=== PATIENT | male | born 1955 | race Caucasian/White ===

== ENCOUNTER → 2019-11-24 08:48 | Outpatient (BNVA) | payer BC, SELFPAY | PROVIDERS: Family Provider Family Medicine; PCP Family Medicine; Visit Provider Urology | DX: R97.20 Elevated prostate specific antigen [PSA] (principal) | CPT/HCPCS: 81001 ==

== ENCOUNTER → 2020-05-24 08:08 | Outpatient (BNVA) | payer BC, SELFPAY | PROVIDERS: Family Provider Family Medicine; PCP Family Medicine; Visit Provider Urology | DX: R97.20 Elevated prostate specific antigen [PSA] (principal) | CPT/HCPCS: 81001; 84153 ==

== ENCOUNTER → 2020-09-25 15:30 | Outpatient (BNVA) | payer BC, SELFPAY | PROVIDERS: Family Provider Family Medicine; PCP Family Medicine; Visit Provider Urology | DX: R97.20 Elevated prostate specific antigen [PSA] (principal); N39.9 Disorder of urinary system, unspecified | CPT/HCPCS: 81003; 84153 ==

== ENCOUNTER → 2021-02-12 15:37 | Outpatient (BNVA) | payer OTHER, SELFPAY | PROVIDERS: Family Provider Family Medicine; PCP Family Medicine; Referring Provider Family Medicine; Visit Provider Orthopaedic Surgery | DX: M75.101 Unspecified rotator cuff tear or rupture of right shoulder, not specified as traumatic (principal); M25.511 Pain in right shoulder; M67.40 Ganglion, unspecified site; M79.89 Other specified soft tissue disorders | CPT/HCPCS: 73030 ==

== ENCOUNTER → 2021-03-26 16:18 | Outpatient (BNVA) | payer MEDICARE, SELFPAY | PROVIDERS: Family Provider Family Medicine; PCP Family Medicine; Visit Provider Urology | DX: R97.20 Elevated prostate specific antigen [PSA] (principal) | CPT/HCPCS: 81003 ==

== ENCOUNTER → 2021-09-24 15:28 | Outpatient (BNVA) | payer MEDICARE, SELFPAY | PROVIDERS: Family Provider Family Medicine; PCP Family Medicine; Visit Provider Urology | DX: R97.20 Elevated prostate specific antigen [PSA] (principal) | CPT/HCPCS: 81003; 84153 ==

== ENCOUNTER → 2021-10-18 13:15 | Outpatient (BNVA) | payer MEDICARE, SELFPAY | PROVIDERS: Family Provider Family Medicine; PCP Family Medicine; Visit Provider Urology | DX: R97.20 Elevated prostate specific antigen [PSA] (principal) | CPT/HCPCS: 88305 ==

== ENCOUNTER → 2021-10-18 13:15 | Outpatient (BNVA) | payer MEDICARE, SELFPAY | PROVIDERS: Family Provider Family Medicine; PCP Family Medicine; Visit Provider Urology | DX: R97.20 Elevated prostate specific antigen [PSA] (principal) | CPT/HCPCS: 88342 ==

== ENCOUNTER 2021-12-24 08:32 | Outpatient (CLI) | payer MEDICARE, SELFPAY ==
--- NOTE | 2021-12-24 10:50 | N.ONRAD NP_ITS ---
Radiation Oncology New Patient Visit Patient: Beni Peguero MR#: [id number] : 1955> Age: 66> Sex: Male> Dictated by: Dr. Jose M George Date of Service: 12/24/2021 Referring Physician(s) : Dr. Yuniel Bay Diagnosis: Prostate, adenocarcinoma, Cochran score 3+3=6, Grade group 1, PSA 9.4, Stage [id number] Radiotherapy to date: Summary > No prior radiation therapy. Chief Complaint / History of Present Illness: Mr. Peguero is a 66-year-old gentleman who was had a fluctuating PSA over the past 5 or 6 years. He has had no significant urinary tract symptoms. Between September 25, 2020 and September 24, 2021, his PSA kailyn from 4.8-9.4. His digital rectal examination revealed no abnormality of the prostate. It was decided to to proceed with transrectal ultrasound guided biopsies. That procedure was performed 10/18/2021. The volume of the prostate was 41 cc. There were hypoechoic areas in both bases. 13 cores were obtained. 3 cores showed Cochran score 3+3 cancer. The positive cores were localized to the left mid gland and left base. No perineural invasion was identified. The involvement of the cores varied from 30% to 70%. Other than slight urgency, Mr. Peguero continues to be free of urinary tract symptoms. He is considering his treatment options and is referred to discuss radiation therapy. He has already seen Dr. Renan Bishop in [place] to review surgery as an option. Current Medications: Acetaminophen, amitriptyline HCl, amLODIPine Besylate, escitalopram Oxalate, gabapentin, hydroCHLOROthiazide, levoFLOXacin, lisinopril, metoprolol Tartrate, naproxen Sodium, omeprazole, oxyCODONE-Acetaminophen. Allergies: No Known Allergies Medical History: Hypertension. No history of collagen vascular disease. No previous radiation therapy. Surgical History: TRUSP/bx. Family History: Father is at age 70 having experienced coronary artery disease. Mother is at age 70 having experienced bone cancer. Social History: Last screened on 11/06/2021 - Unknown if ever smoked. Last screened on 11/06/2021 - Never drank. Current Complaints / Review of Systems: . Vital Signs: Performed on 12/24/2021 9:18 AM BMI - 32.386 kg/m2 (high), Height - 71 in, Weight - 232.2 lbs, Temperature - 96.9 f, Pulse - 57 /min (low), Respiration - 18 /min, O2 Sat - 93 % (low), Pain - 0, Fatigue - 0 and BP - 128/ 79 mm(hg). Physical Exam: Alert, oriented, no acute distress. No cervical or supraclavicular lymphadenopathy. Lungs clear to percussion. On auscultation no rales rhonchi or wheezes. Heart rhythm regular. No murmur gallop or rub. Abdomen no distention. No organomegaly or mass or tenderness. Musculoskeletal normal gait. No bone tenderness. Rectal exam not performed. The prostate was described as benign without any nodularity by Dr. Bay. Performance Status: Karnofsky 100% Pathology: Prostate, adenocarcinoma, Lindsay 3+3, grade group 1, 3 of 13 cores positive, no perineural invasion. Positive cores came from the left mid gland and left base. Lab: PSA 9.4 Imaging: None indicated because of low risk disease Impression: Mr. Peguero has a low risk carcinoma of the prostate. According to NCCN guidelines he is a candidate for active surveillance, radical prostatectomy, external beam radiation alone, or brachytherapy alone. I told him I do not recommend active surveillance because of the unreliability of PSA as a marker to follow the cancer as well as the number of cores involved and their extent of involvement. He is not interested in active surveillance. I also discussed brachytherapy, which would be performed in [place] by Dr. Bishop and Dr. Ramirez. He is not interested in brachytherapy at all. He seemed to have a thorough understanding of the surgical option, so I proceeded on to discuss external beam radiation. I told him if he selects external beam radiation that Dr. Renan Jessica will be in charge of the treatment. I told him based on having low risk disease, that I think Dr. Jessica would recommend a 4-week course of radiation to the prostate and proximal seminal vesicles only. I discussed the treatment planning process, the delivery of treatment, the acute side effects, and potential long-term complications. I discussed that there is a high risk of impotence from radiation. We discussed that long-term injury to the bowel and bladder is possible but a very low risk. I discussed that it would be rare to require a permanent ostomy for bowel or bladder. Plan: Mr. Peguero seems inclined toward surgery. However, he is going to consider our discussion further before making a final decision. Signed by: 12/24/2021 10:50:27 AM <<Signature on File>> Time spent with patient: CPT Code: CPT Code:
== END 2021-12-24 08:33 | disposition home or self-care (01) ==
LOC: ONCMED 08:40
PROVIDERS: PCP Family Medicine; Visit Provider Specialist
DX: C61 Malignant neoplasm of prostate (principal); I10 Essential (primary) hypertension; Z79.899 Other long term (current) drug therapy
CPT/HCPCS: 99205

== ENCOUNTER 2023-08-19 08:31 | Outpatient (CLI) | payer MEDICARE, SELFPAY ==
--- NOTE | 2023-08-19 | ECG_ITS ---
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 Interpretive Statements NAME OF STUDY: EXERCISE SESTAMIBI STRESS TEST INDICATION: Chest Pain, PROCEDURE: The baseline electrocardiogram showed [sinus bradycardia with poor R wave progression. Possible old septal [place]. Nonspecific T wave changes. At the baseline, the patient's blood pressure was 125/81 mm Hg with a heart rate of 55. The patient exercised for 11 minutes and 1 seconds on a standard Lance protocol. Patient attained a maximum heart rate of 136 beats per minute(88% of the maximum predicted heart rate) with a blood pressure at the peak exercise of 177/109 mm Hg. The EKG at the peak exercise revealed no significant changes. Patient did not have any chest pain or any significant arrhythmis with the exercise Sestamibi was injected 1 minute prior to the peak exercise During the recovery phase, there were no new changes. Occasional PVCs were noted Blood pressure at the end of the recovery phase was 158/95 mm Hg with a heart rate of 71 per minute. CONCLUSION: 1. No significant EKG changes with the [treadmill exercise 2. No exercise-induced chest pain. Occasional ventricular arrhythmias(isolated PVCs) during the recovery phase 3. Good exercise tolerance, attained a maximum of 13.5 METs. Maximum VO2 47.3 4. Hypertensive response to exercise 5. Sestamibi/Sestamibi perfusion results pending; see separate report. Electronically Signed On 08-22-2023 13:46:48 NETWORK SECURITY OFFICER by Antonio Dunn M.D. [id number]
[2023-08-19 08:46] VITALS: BMI 32.3
--- NOTE | 2023-08-19 08:54 | NMCV_ITS ---
NM valeria perf SPECT r/s* [id number] Beni Peguero Age: 68 Gender: M : 1955 Exam Date: 08/19/2023 09:48 Ordering Phys: Madhuri Collier MD Technologist: AGNIESZKA Locke Exam Location: [facility] Indications: SHORTNESS OF BREATH, ATHEROSCLEROTIC HEART DISEASE STRESS TEST [facility] IMAGE PROTOCOL Rest/Stress 1 Exercise Day Radiopharmaceutical Dose (mCi) Administration Site Administered by Rest: Tc-99m 10.8 IV AGNIESZKA Bone Sestamibi Stress:Tc-99m 32.6 IV AGNIESZKA Bone Sestamibi Rest: 19-Aug-2023 60 Discovery 630 Stress: 19-Aug-2023 30 Discovery 630 Radiopharmaceutical was injected at 85 % maximum heart rate. Images obtained in supine and prone position. SPECT RESULTS Technical Quality: Excellent Raw Data Analysis: Normal Image Corrections: No attenuation or motion correction applied Summed Stress Score: 10 Summed Rest Score: 8 Summed Difference Score: 2 PERFUSION FINDINGS A small to moderate area of moderate to severely decreased tracer uptake involving the mid anteroseptal, apical septal, apical inferior and LV apex. Subtle areas of reversibility was noted in the anteroseptal and LV apex. 2014 FUNCTIONAL RESULTS (calculated via Gated SPECT) Stress Image LV EF (%): 62 Stress EDV (mL):122 TID: 0.73 Stress ESV (mL):46 FUNCTIONAL FINDINGS: Segmental wall motion analysis revealing mild diffuse hypokinesia of the septum and the LV apex IMPRESSIONS 1. Myocardial perfusion imaging revealing small to moderate area of moderate to severely decreased tracer uptake involving the mid anteroseptum, apical septum, apical inferior and LV apex with subtle areas of reversibility, suggesting myocardial scarring in the distribution of the left anterior descending artery/right coronary artery with a subtle areas of lorenzo-infarction ischemia. 2. Normal ejection fraction of 62%. 3. LV wall motion analysis revealing mild diffuse hypokinesia of the septum and the LV apex 4. LV volume, upper limit of normal, 46 ml. No similar previous studies are available for comparison Dr Antonio Dunn MD FAC (Electronically Signed) Final Date: 19 August 2023 21:00 S
[2023-08-19 11:04] VITALS: BP 158/95; PULSE 72
== END 2023-08-19 08:32 | disposition home or self-care (01) ==
PROVIDERS: PCP Family Medicine; Visit Provider Family Medicine
DX: R06.00 Dyspnea, unspecified (principal); I25.10 Atherosclerotic heart disease of native coronary artery without angina pectoris
CPT/HCPCS: 36415; 78452; 93017; A9500

== ENCOUNTER 2024-10-20 10:45 | Outpatient (CLI) | payer MEDICARE, SELFPAY ==
--- NOTE | 2024-10-20 10:55 | MR_ITS ---
WS: [id number] MRI RIGHT KNEE NONCONTRAST TECHNIQUE: Axial PD, coronal PD fat sat, coronal PD, sagittal PD, and sagittal PD fat-sat images obta ined. CLINICAL INFORMATION: KNEE PAIN COMPARISON: None. FINDINGS: Distal quadriceps and patella tendons are intact. Hypertrophic patella. Moderate suprapatellar effusi on. Prepatellar soft tissue edema. Grade IV chondromalacia patella. Small amount of subchondral edema . Diffuse soft tissue edema about the knee and popliteal fossa. Advanced tricompartment arthritis. AC L and PCL appear intact. Diffuse mucoid degeneration of the ACL with increased T1 and T2 signal Grade IV chondromalacia medial and lateral joint compartments. Subchondral edema in the medial joint compartment. Chronic thinning of the medial and lateral meniscus. Chronic appearing tear of the media l meniscus involving the medial meniscal root with blunting. Peripheral extrusion of the medial and l ateral meniscus. Small lobulated popliteal cyst measuring 2.1 x 1.2 cm. Hypertrophic changes along th e joint line. MR/MR knee RT wo con* [id number] IMPRESSION: 1. Advanced tricompartmental arthritis 2. Grade IV chondromalacia patella. Moderate suprapatellar effusion. 3. Grade IV chondromalacia medial and lateral joint compartments worse in the medial joint compartment with subchondral edema. 4. Diffuse mucoid degeneration of the ACL. 5. Chronic thinning of the medial and lateral meniscus. Chronic appearing tear of the medial meniscus at the meniscal root with blunting. 6. Small lobulated popliteal cyst. 7. Grade 1-2 injury MCL with fluid and edema along the superficial and deep fi bers. Outbridge grading: grade IV: full-thickness cartilage loss with underlying bone reactive changes
== END 2024-10-20 10:46 | disposition home or self-care (01) ==
LOC: RAD 10:48
PROVIDERS: PCP Nurse Practitioner Family; Visit Provider Family Medicine
DX: M17.11 Unilateral primary osteoarthritis, right knee (principal); M22.41 Chondromalacia patellae, right knee; R93.6 Abnormal findings on diagnostic imaging of limbs; M71.21 Synovial cyst of popliteal space [Baker], right knee; M23.203 Derangement of unspecified medial meniscus due to old tear or injury, right knee
CPT/HCPCS: 73721

== ENCOUNTER 2024-10-24 07:28 | Outpatient (CLI) | payer MEDICARE, SELFPAY ==
--- NOTE | 2024-10-24 | ECG_ITS ---
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 The perfusion scan will be documented separately. DATA: Baseline heart rate was 54 beats per minute. Baseline blood pressure was 148/84 millimeters of mercury. Target heart rate was 152. Maximum heart rate achieved was 69. which was 45 % of the predicted target heart rate. Maximum blood pressure was 148/87 millimeters of mercury. The reason for ending the test was completion of the protocol. The patient did not experience any symptoms. ELECTROCARDIOGRAM: BASELINE: Sinus bradycardia, normal axis. Old anterior wall myocardial infarction, otherwise, no ST-T changes suggestive of ischemia noted. No arrhythmia noted. EXERCISE: After Lexiscan injection, no ST-T changes suggestive of ischemic noted. No arrhythmia noted. CONCLUSION: Please note due to baseline abnormality of the EKG specificity and sensitivity of the EKG portion of LexiScan MIBI stress test will be low 1. EKG not suggestive of ischemia 2. Lexiscan injection unremarkable. 3. Perfusion scan will be documented separately. Electronically Signed On 11-14-2024 21:44:34 WELDING INSPECTOR by TEZ SIEGEL [id number]
[2024-10-24 08:22] VITALS: BMI 31.4
--- NOTE | 2024-10-24 08:23 | NMCV_ITS ---
NM valeria perf SPECT r/s* [id number] Beni Peguero Age: 69 Gender: M : 1955 Exam Date: 10/24/2024 08:27 Ordering Phys: Madhuri Collier MD Technologist: AGNIESZKA Robledo Exam Location: [facility] Indications: sob STRESS TEST Please see separate stress test report in [facility] for full findings IMAGE PROTOCOL Rest/Stress 1 Lexiscan Day Radiopharmaceutical Dose (mCi) Administration Site Administered by Rest: Tc-99m 10.9 IV Malena Parnell, SUPERVISORY AIDE Sestamibi Stress:Tc-99m 33 IV Malena Dietzgle, SUPERVISORY AIDE Sestamibi Rest: 24-Oct-2024 60 Discovery 630 Stress: 24-Oct-2024 30 Discovery 630 0.4mg Lexiscan. Images obtained in supine and prone position. SPECT RESULTS Technical Quality: Good Raw Data Analysis: Normal Image Corrections: No attenuation or motion correction applied Summed Stress Score: 12 Summed Rest Score: 16 Summed Difference Score: 0 PERFUSION FINDINGS Medium sized area of fixed perfusion defect noted in mid to distal anteroseptal and apical wall suggestive of old myocardial infarction versus scarring. Large area of fixed patchy decreased tracer uptake noted in basal to distal inferior and basal to distal inferoseptal wall suggestive of old myocardial infarction versus scarring. FUNCTIONAL RESULTS (calculated via Gated SPECT) Stress Image LV EF (%): 54 Stress EDV (mL):139 TID: 0.84 Stress ESV (mL):64 FUNCTIONAL FINDINGS: Global hypokinesis. Ejection fraction 40 to 45% IMPRESSIONS Medium sized area of old myocardial infarction versus scarring noted in mid to distal anteroseptal and anterior wall suggestive of old myocardial infarction versus scarring. Large area of old myocardial infarction versus scarring noted in basal to mid inferior wall. This study is negative for ischemia. EKG segment will be documented separately Mamta Walker MD (Electronically Signed) Final Date: 24 October 2024 13:58 S
[2024-10-24] MEDS: regadenoson 0.4 Mg/5 ml Syringe IVP (08:50)
== END 2024-10-24 07:29 | disposition home or self-care (01) ==
LOC: CDL 07:29
PROVIDERS: PCP Family Medicine; Visit Provider Family Medicine
DX: R06.02 Shortness of breath (principal); I25.10 Atherosclerotic heart disease of native coronary artery without angina pectoris; R93.1 Abnormal findings on diagnostic imaging of heart and coronary circulation
CPT/HCPCS: 36415; 78452; 96374; A9500; J2785

== ENCOUNTER 2024-11-09 09:58 | Outpatient (CLI) | payer MEDICARE, SELFPAY | END 2024-11-09 09:59 | disposition home or self-care (01) | LOC: RT 10:02 | PROVIDERS: PCP Family Medicine; Visit Provider Family Medicine | DX: R06.09 Other forms of dyspnea (principal) | CPT/HCPCS: 94010; 94726; 94729 ==

== ENCOUNTER 2024-12-06 12:22 | Outpatient (CLI) | payer MEDICARE, SELFPAY | END 2024-12-06 12:23 | disposition home or self-care (01) | LOC: RT 12:23 | PROVIDERS: PCP Family Medicine; Visit Provider Family Medicine | DX: R06.09 Other forms of dyspnea (principal) | CPT/HCPCS: 94618 ==

== ENCOUNTER 2025-09-21 14:09 | Outpatient (CLI) | payer MEDICARE, SELFPAY ==
--- NOTE | 2025-09-21 14:15 | XR_ITS ---
WS: [id number] XR cervical spine min 6V [id number] REASON FOR EXAM: CERVICALGIA/DIZZINESS/NECK PAIN FINDINGS: Mild straightening of the normal lordosis. No significant vertebral body compression deformity or focal lesion. Mild osteophytosis of the cervical vertebrae C3-C7. Mild narrowing of the disc space at C4-C5. Moderate narrowing of the disc spaces at C5-C6 and C6-C7. Mild degenerative arthropathy in the facet joints C3-C7. Normal facet joint alignment. No significant neutral listhesis. No significant listhesis with flexion and extension. XR/XR cervical spine min 6V [id number] IMPRESSION: Moderate degenerative spondylosis.
== END 2025-09-21 14:10 | disposition home or self-care (01) ==
LOC: RAD 14:11
PROVIDERS: PCP Family Medicine; Visit Provider Nurse Practitioner Family
DX: R42 Dizziness and giddiness (principal); Z68.32 Body mass index [BMI] 32.0-32.9, adult; M54.2 Cervicalgia; M40.46 Postural lordosis, lumbar region; M25.78 Osteophyte, vertebrae; M48.02 Spinal stenosis, cervical region; M47.812 Spondylosis without myelopathy or radiculopathy, cervical region
CPT/HCPCS: 72052